=== PATIENT | male | born 2000 | race Asian ===

== ENCOUNTER 2023-12-29 09:55 | Emergency (ER) | payer BC ==
[~2023-12-29] VITALS: Ht 172.7 cm; Wt 90.7 kg
[2023-12-29 09:55] VITALS: BP_SYST 155; PULSE 71; RESP 18; TEMP 97.8; O2SAT 95
[2023-12-29] MEDS: LIDOCAINE 1% 10 MG/ML, 20 ML MDV INJ ONE (10:18)
[2023-12-29] MEDS ORDERED: BACITRACIN 1 GM OINT TP ONE (11:18)
[2023-12-29] MEDS: BACITRACIN ZINC 15 GM TOPICAL OINTMENT TP SCH (11:26)
[2023-12-29 11:27] VITALS: BP_SYST 100; PULSE 79; RESP 16; TEMP 97.7; O2SAT 100
== END 2023-12-29 11:20 | disposition home or self-care (01) ==
LOC: SED 09:55
DX: S01.81XA Laceration without foreign body of other part of head, initial encounter (principal); V19.88XA Pedal cyclist (driver) (passenger) injured in other specified transport accidents, initial encounter; Y93.89 Activity, other specified; Y92.89 Other specified places as the place of occurrence of the external cause; Y99.8 Other external cause status
CPT/HCPCS: 99282; J2001